=== PATIENT | female | born 1960 | race Caucasian/White ===

== ENCOUNTER 2023-04-28 12:01 | Emergency (ER) | payer MEDICAID, SELFPAY ==
[2023-04-28 12:15] VITALS: BP 129/84; PULSE 78; RESP 14; TEMP 36.8; O2SAT 95
--- NOTE | 2023-04-28 12:23 | ED.GENADUL_ITS ---
Discharge Plan Disposition Patient Disposition: Home Discharge Details Clinical Impression: Acute carpal tunnel syndrome of right wrist Primary Care Provider: Rachel Mendoza ED Provider: Pravin Howard Home Meds and New Rx's Prescriptions: Continued atorvastatin [Lipitor] 10 MG tablet 10 mg PO DAILY Patient Comments: 09.03.17 pt states new med, believes this is it.HE cholecalciferol (vitamin D3) [Vitamin D3] 1,000 UNIT capsule 1,000 unit PO DAILY bupropion HCl [Wellbutrin XL] 150 MG tablet extended release 24 hr 150 mg PO DAILY Patient Comments: 09.03.17 pt states unsure of dosage.HE prednisone 5 MG tablet 5 mg PO DAILY Qty: 30 Rx Instructions: take 2 tabs po qam for 10 days, then take 1 tab po qam for 10 days.HE venlafaxine 150 MG capsule,extended release 24hr 300 mg PO DAILY vitamin O23-[id number] acid 1 EACH tablet 1 tab PO DAILY cyanocobalamin (vitamin B-12) [Vitamin B-12] 1,000 MCG tablet 1,000 mcg PO DAILY ibuprofen 600 MG tablet 600 mg PO TID Qty: 30 0RF Discharge Instructions Additional Instructions: Please read all of the information that accompanies these instructions. You were seen in the emergency department for your wrist pain. Your x-ray showed no sign of any fractures. You are receiving a brace use and wear during the day to support your wrist that she likely have carpal tunnel syndrome which is an inflammation of the nerve and the rest. Please schedule an appointment with your primary care provider later this week. Please return to the emergency department if develop fevers worsening pain or any swelling in her hand. For your pain please take medications as follows: 1. Take acetaminophen (Tylenol), 1,000 mg (two 500 mg tabs) every 6 hours 2. Take ibuprofen (Advil), 200 mg every 6 hours. Discharge Data Discharge Date/Time-TO BE ENTERED AT DEPARTURE: 04/28/23 14:13 Medical Decision Making This is an overall very well-appearing normothermic and not tachycardic 62-year-old [id number] female with acute right wrist pain and hand with decreased function concerning for right median monoarthropathy. Patient has no signs of abscess nor swelling. No signs of felon. No pain out of proportion to suggest necrotizing soft tissue infection. No recent changes in urine output to suggest proteinuria so I did not obtain urinalysis. Plain films negative. No history of tick bites to suggest Lyme arthritis. No tenderness along flexor tendon sheath to suggest flexor tenosynovitis and no fusiform swelling. We will splint patient with a removable wrist brace in a neutral position. Will advise PCP follow-up and ED return for worsening pain and swelling. I advised behavioral modification and ice as needed. HPI General Date/Time Provider Initiated Documentation: 04/28/23 12:23 . HPI Narrative: This is a [id number] 62-year-old female with right hand and wrist pain. Patient reports she was more active than usual 2 nights ago. She was reportedly cleaning extensively and then subsequently went out to mow her lawn. She has had swelling and pain in her right hand. She denies any specific trauma. No prior history of similar symptoms. No history of diabetes. She has had some numbness and tingling shooting down her right hand into her right index finger and right long finger. She denies any recent fevers chills nausea vomiting chest pain shortness of breath. No prior history of similar symptoms. Related Data Home Medications Medication Instructions Recorded Confirmed venlafaxine 150 mg 300 mg PO DAILY 02/08/13 04/28/23 capsule,extended release 24 hr vitamin B12 500 mcg-folic acid 400 1 tab PO DAILY 02/08/13 08/10/13 mcg tablet cyanocobalamin (vitamin B-12) 1,000 mcg PO DAILY 08/10/13 08/10/13 1,000 mcg tablet (Vitamin B-12) ibuprofen 600 mg tablet 600 mg PO TID #30 tabs 08/10/13 04/28/23 atorvastatin 10 mg tablet (Lipitor) 10 mg PO DAILY 09/03/17 04/28/23 bupropion HCl 150 mg 24 hr tablet, 150 mg PO DAILY 09/03/17 04/28/23 extended release (Wellbutrin XL) cholecalciferol (vitamin D3) 25 1,000 unit PO DAILY 09/03/17 04/28/23 mcg (1,000 unit) capsule (Vitamin D3) prednisone 5 mg tablet 5 mg PO DAILY #30 tab-caps 09/03/17 Previous Rx's Medication Instructions Recorded ibuprofen 600 mg tablet 600 mg PO TID #30 tabs 08/10/13 Allergies Allergy/AdvReac Type Severity Reaction Status Date / Time No Known Allergies Allergy Unverified 04/28/23 12:20 General Stated Complaint: Orthopedic KHANH: 4 PFSH All Active Problems (Updated 04/28/23 @ 13:48 by Pravin Howard MD) Acute carpal tunnel syndrome of right wrist (Acute) Social History Smoking/Tobacco Use Status: Current every day Smoking risk assessment performed?: Yes Alcohol Intake: never Drug use: Never Substance use type: does not use Do you feel safe in your relationship?: Yes Exam Narrative Exam Narrative: General: Well-appearing in no acute distress speaking in complete sentences. Head: Normocephalic, atraumatic. Eye: Extraocular eye movements intact. No conjunctival injection. No scleral icterus. Ear, nose, mouth, throat: Grossly normal inspection. Normal voice, handling secretions normally. Neck: Trachea midline. Cardiovascular: Well-perfused distal extremities. Respiratory: Nonlabored respiration. Gastrointestinal: Nondistended abdomen. Musculoskeletal: Right hand with no significant swelling erythema contusions. No lacerations. Sensation and motor function is intact across the radial, median, and ulnar nerve distributions of the right hand. Cap refill less than 2 seconds in the right fingertips. 2+ right radial pulse. Patient does have percussive tenderness along her the median nerve on percussion at the palmar aspect of the wrist. Positive Tinel's sign. Patient also has a positive Phalen's test. Skin: Normal for age and race, grossly normal temperature and turgor. No acute rash. Neurologic: Alert and appropriate, no apparent acute deficits. Psychiatric: Mood and manner are appropriate. Grooming and personal hygiene are appropriate. Course Vital Signs Vital signs: Vital Signs Temperature 36.8 C 04/28/23 12:15 Pulse 78 04/28/23 12:15 Respiratory Rate 14 04/28/23 12:15 Blood Pressure 129/84 04/28/23 12:15 Pulse Oximetry 95 04/28/23 12:15 Temperature 36.8 C 04/28/23 12:15 Temperature Source Oral 04/28/23 12:15 Pulse 78 04/28/23 12:15 Respiratory Rate 14 04/28/23 12:15 Respiratory Effort Normal 04/28/23 12:18 Blood Pressure 129/84 04/28/23 12:15 Blood Pressure Position Sitting 04/28/23 12:15 Pulse Oximetry 95 04/28/23 12:15 Oxygen Delivery Method Room Air 04/28/23 12:15 Oxygen Flow Rate 0 04/28/23 12:15 Pain Level 5 04/28/23 12:18
--- NOTE | 2023-04-28 12:56 | DI.RAD_ITS ---
Exam(s) XR HAND RT COMPLETE EXAM: XR HAND RT COMPLETE CLINICAL HISTORY: Right hand pain and swelling. TECHNIQUE: 2D digital imaging was performed. COMPARISON: No exams were available for comparison FINDINGS: 3 views No evidence of acute fracture or subluxation. No osseous lesions nor erosions. No radiopaque foreig n body. There are degenerative changes in the DIP joint of the 2nd-index finger; less so in the 3rd and 4th fingers. No significant findings at 1st carpometacarpal joint. IMPRESSION: No fractures. Findings as above. DATA REPOSITORY: RADIATION DOSE DELIVERED:
[2023-04-28] MEDS: Acetaminophen 500 MG TAB 1000 MG PO (14:06)
[2023-04-28] MEDS: Ibuprofen 200 MG TAB PO (14:06)
[2023-04-28 14:07] VITALS: BP 121/82; PULSE 82; RESP 18; O2SAT 96
== END 2023-04-28 14:13 | disposition home or self-care (01) ==
PROVIDERS: Emergency Provider Emergency Medicine; PCP Internal Medicine
DX: M25.531 Pain in right wrist (principal); G56.01 Carpal tunnel syndrome, right upper limb; F17.200 Nicotine dependence, unspecified, uncomplicated
CPT/HCPCS: 29125; 99282; 99283; 73130; 99284